=== PATIENT | female | born 1950 | race Caucasian/White ===

== ENCOUNTER 2019-12-31 13:32 | Outpatient (CLI) | payer OTHER, MEDICARE ==
--- NOTE | 2019-12-31 14:48 | MMO ---
Bilateral MAMMO Bilat Screen [facility]. CLINICAL HISTORY: Patient is 69 years old and is seen for screening. The patient has the following family history of breast cancer: daughter, at age 37. The patient has no personal history of cancer. VIEWS: The views performed were: bilateral craniocaudal with tomosynthesis and bilateral mediolateral oblique with tomosynthesis. FILMS COMPARED: The present examination has been compared to prior imaging studies performed at [facility] on 12/01/2013 and 12/08/2017, and at [facility] on 03/14/2010 and 08/14/2011. This study has been interpreted with the assistance of computer-aided detection. MAMMOGRAM FINDINGS: There are scattered fibroglandular densities. A nodule is seen in the right mid breast. In the left breast, there are no suspicious masses, calcifications or areas of architectural distortion. IMPRESSION: FINDING IN THE RIGHT BREAST REQUIRES ADDITIONAL EVALUATION. SPOT COMPRESSION IS RECOMMENDED. AN ULTRASOUND EXAM IS RECOMMENDED. ADDITIONAL IMAGING. THE RESULTS OF THIS EXAM WERE SENT TO THE PATIENT. ACR BI-RADS Category 0 - Incomplete: Need additional imaging evaluation. [facility] will notify the patient of the need for additional imaging services. MAMMOGRAPHY NOTE: 1. A negative mammogram report should not delay a biopsy if a dominant of clinically suspicious mass is present. 2. Approximately 10% to 15% of breast cancers are not detected by mammography. 3. Adenosis and dense breasts may obscure an underlying neoplasm. Reported by: KEVIN WALTON MD Electonically Signed: [id number]
== END 2019-12-31 13:33 | disposition home or self-care (01) ==
LOC: BICMAMMO 13:32
PROVIDERS: ATTEND Family Medicine
DX: Z12.31 Encounter for screening mammogram for malignant neoplasm of breast (principal); Z80.3 Family history of malignant neoplasm of breast
CPT/HCPCS: 77063; 77067

== ENCOUNTER 2020-01-04 14:54 | Outpatient (CLI) | payer OTHER, MEDICARE ==
--- NOTE | 2020-01-04 15:55 | MMO ---
Right Breast MAMMO Unilat Diag [facility]DI RT+CORTEZ. CLINICAL HISTORY: Patient is 69 years old and is seen for additional evaluation requested from prior study. The patient has the following family history of breast cancer: daughter, at age 37. The patient has no personal history of cancer. VIEWS: The views performed were: right craniocaudal spot compression with tomosynthesis; right mediolateral oblique spot compression with tomosynthesis; and right mediolateral with tomosynthesis. FILMS COMPARED: The present examination has been compared to prior imaging studies performed at [facility] on 12/01/2013, 12/08/2017, 12/31/2019 and 01/04/2020. This study has been interpreted with the assistance of computer-aided detection. MAMMOGRAM FINDINGS: There are scattered fibroglandular densities. Additional views were performed. Tiny nodule persisis and is a 5mm cyst on US There are no suspicious masses, suspicious calcifications, or new areas of architectural distortion. IMPRESSION: THERE IS NO MAMMOGRAPHIC EVIDENCE OF MALIGNANCY. A ROUTINE FOLLOW-UP MAMMOGRAM IN 1 YEAR IS RECOMMENDED. THE RESULTS OF THIS EXAM WERE SENT TO THE PATIENT. ACR BI-RADS Category 2 - Benign finding MAMMOGRAPHY NOTE: 1. A negative mammogram report should not delay a biopsy if a dominant of clinically suspicious mass is present. 2. Approximately 10% to 15% of breast cancers are not detected by mammography. 3. Adenosis and dense breasts may obscure an underlying neoplasm. Reported by: KEVIN WALTON MD Electonically Signed: [id number]
--- NOTE | 2020-01-04 16:00 | ULT ---
LEFT BREAST ULTRASOUND: 01/04/20 HISTORY: Abnormal mammogram of 12/31/19. FINDINGS: Correlation is made with the mammograms of 12/31/19 and today. There is a 5 mm cyst at the 7 o'clock position of the right breast corresponding to the mammographic finding. Incidental note is also made of a 1 cm nonshadowing hypoechoic nodule with hyperechoic hilum consiste nt with intramammary lymph node at the 10 o'clock position of the right breast. IMPRESSION: BIRADS 2: Benign Finding(s) Routine annual screening mammography (for women over age 40).
== END 2020-01-04 14:55 | disposition home or self-care (01) ==
LOC: BICMAMMO 14:54
PROVIDERS: ATTEND Family Medicine
DX: N63.13 Unspecified lump in the right breast, lower outer quadrant (principal)
CPT/HCPCS: G0279

== ENCOUNTER 2020-04-03 16:31 | Inpatient (IN) | payer OTHER, MEDICARE ==
[2020-04-03 17:30] LABS: #Eosinphils 0.1 thou/uL (0.0-0.7); #Lymphocytes 1.3 thou/uL (1.20-3.40); #Monocytes 0.7 thou/uL (0.11-0.59); #Neutrophils 9.4 thou/uL (1.40-6.50); %Basophils 0.1 % (0.0-1.0); %Eosinophils 0.4 % (0.0-10.0); %Lymphocytes 11.5 % (21.0-51.0); %Monocytes 6.4 % (0.0-10.0); %Neutrophils 81.6 % (42.0-75.0); Hemoglobin 13.2 g/dL (12.0-16.0); Mean Corpuscular Hemoglobin 30.8 pg (27.0-31.0); Mean Corpuscular Volume 87.9 fL (78.0-98.0); Mean Platelet Volume 7.3 fL (7.4-10.4); Platelet Count 269 thou/uL (130-400); RBC Distribution Width 11.2 % (11.5-14.5); Red Blood Cell (RBC) Count 4.29 mill/uL (4.20-5.40); White Blood Cell (WBC) Count 11.5 thou/uL (4.8-10.8)
[2020-04-03] MEDS ORDERED: Dexamethasone 10 MG/ML VIAL ONE (17:30)
[2020-04-03] MEDS ORDERED: Albuterol 200 PUFF (6.7GM INHALER) ONE (17:30)
[2020-04-03] MEDS ORDERED: Ketorolac Tromethamine 30 MG/ML VIAL ONE (17:30)
[2020-04-03] MEDS ORDERED: Acetaminophen 325 MG TAB ONE (17:30)
[2020-04-03] MEDS ORDERED: Ondansetron PF 4 MG/2 ML Vial ONE (17:30)
--- NOTE | 2020-04-03 17:54 | RAD ---
PORTABLE CHEST: History: Dyspnea. Shortness of breath. Patient's is Covid positive, patient has tested negati ve. Comparison: None FINDINGS: Heart size is within normal limits. Patchy mainly peripheral lung changes are very suspicious for a C ovid pneumonia. There are chronic lung changes. I would doubt that all of these changes are chronic i n nature. IMPRESSION: Patchy multifocal infiltrate very suspicious for Covid pneumonia. POS: OFF
[2020-04-03 17:56] LABS: ALT (SGPT) 28 U/L (8-55); AST (SGOT) 29 U/L (5-34); Albumin 3.4 g/dL (3.4-4.8); Alkaline Phosphatase 119 U/L (40-110); Anion Gap 14 mmol/L (10-20); BUN (Urea Nitrogen) 14 mg/dL (9.8-20.1); Bilirubin, Total 0.6 mg/dL (0.2-1.2); Calc. Creatinine Clearance 0 mL/min (70-130); Calcium 9.3 mg/dL (7.8-10.44); Carbon Dioxide 23 mmol/L (23-31); Chloride 104 mmol/L (98-107); Estimated GFR-MDRD 70; Globulin 3.7 g/dL (2.4-3.5); Glucose 106 mg/dL (80-115); Protein, Total 7.1 g/dL (6.0-8.3); Sodium 137 mmol/L (136-145)
[2020-04-03] MEDS ORDERED: cefTRIAXone\\ROCEPHIN 2 GM VIAL ONE (19:06)
[2020-04-03] MEDS ORDERED: Azithromycin 250 MG TAB ONE (19:06)
[2020-04-03] MEDS ORDERED: Sodium Chloride 0.9% 1,000 ML IV SCH (20:15)
[2020-04-03] MEDS ORDERED: Acetaminophen 325 MG TAB PO PRN (20:15)
--- NOTE | 2020-04-03 20:22 | PDOC.HHP ---
Hospitalist HPI - History of Present Illness Shortness of breath History of Present Illness: 69-year-old woman with a history of hypertension presented to the emergency department with a complaint of general malaise, shortness of breath and nonproductive cough of 2 days duration. Patient reports rapid progression of her symptoms over the period of 2 days. She states she felt hot, but she was afebrile in the ED. Per report her tested positive for COVID. Her chest x-ray in the ED report patchy multifocal infiltrates suggestive of COVID pneumonia. She apparently tested negative for COVID yesterday. Rapid COVID test has been obtained in the ED. patient symptoms suggest COVID pneumonia. Ox ygen saturations 90% on room air but she was tachypneic and complaining of shortness of breath. Her systolic blood pressure is borderline low at 88. She has no leukocytosis but she is tachycardic and meet criteria for sepsis. Patient reports history of low immunity but does not know the specific diagnosis. I am not able to find any record of that in the chart. patient is admitted for further management. Hospitalist ROS - Review of Systems Other: Except as documented, all other systems reviewed and negative. - Medication Medications: Medication Instructions Recorded Confirmed Type Amlodipine Besylate [amLODIPine 5 mg PO DAILY 04/03/20 04/03/20 History Besylate] Aspirin [Quang Chewable Aspirin] 81 mg PO QAM 04/03/20 04/03/20 History Calcium Carbonate [Calcium] 600 mg PO DAILY-AC 04/03/20 04/03/20 History Cholecalciferol (Vitamin D3) 125 mcg PO QAM 04/03/20 04/03/20 History [Vitamin D3] Hydrochlorothiazide 25 mg PO QAM 04/03/20 04/03/20 History [place]-3 Fatty Acids/Fish Oil [Fish 1 cap PO DAILY 04/03/20 04/03/20 History Oil 1,000 mg Capsule] Vit A/Vit C/Vit E/Zinc/Copper 2 tablet PO BID 04/03/20 04/03/20 History [PreserVision AREDS] Zinc 50 mg PO QAM 04/03/20 04/03/20 History - Exam General - other findings: Mild distress Eye: PERRL, anicteric sclera ENT: normocephalic atraumatic, no oropharyngeal lesions, moist mucosa Neck: supple, symmetric, no JVD Heart: no murmur, no rubs, normal peripheral pulses Respiratory: no wheezes, rales (Mild bibasilar Rales.) Gastrointestinal: soft, non-tender, non-distended Extremities: no cyanosis, no clubbing, no edema Skin: normal turgor, no lesions, no rashes Neurological: cranial nerve grossly intact, no weakness, no focal deficits Musculoskeletal: normal strength Psychiatric: normal affect, normal behavior, A&O x 3 Hospitalist Results - Labs Result Diagrams: 04/04/20 05:52 04/04/20 05:52 Lab results: WBC 11.5 thou/uL (4.8-10.8) H 04/03/20 17:20 Hgb 13.2 g/dL (12.0-16.0) 04/03/20 17:20 Hct 37.8 % (36.0-47.0) 04/03/20 17:20 MCV 87.9 fL (78.0-98.0) 04/03/20 17:20 Plt Count 269 thou/uL (130-400) 04/03/20 17:20 Neutrophils % 81.6 % (42.0-75.0) H 04/03/20 17:20 Sodium 137 mmol/L (136-145) 04/03/20 17:20 Potassium 4.0 mmol/L (3.5-5.1) 04/03/20 17:20 Chloride 104 mmol/L (98-107) 04/03/20 17:20 Carbon Dioxide 23 mmol/L (23-31) 04/03/20 17:20 BUN 14 mg/dL (9.8-20.1) 04/03/20 17:20 Creatinine 0.82 mg/dL (0.6-1.1) 04/03/20 17:20 Glucose 106 mg/dL (80-115) 04/03/20 17:20 Calcium 9.3 mg/dL (7.8-10.44) 04/03/20 17:20 Total Bilirubin 0.6 mg/dL (0.2-1.2) 04/03/20 17:20 AST 29 U/L (5-34) 04/03/20 17:20 ALT 28 U/L (8-55) 04/03/20 17:20 Alkaline Phosphatase 119 U/L (40-110) H 04/03/20 17:20 Troponin I Less than 0.010 ng/mL (< 0.028) 04/03/20 17:20 Serum Total Protein 7.1 g/dL (6.0-8.3) 04/03/20 17:20 Albumin 3.4 g/dL (3.4-4.8) 04/03/20 17:20 - Radiology Interpretation Chest x-ray Status: report reviewed by me (Patchy multifocal infiltrates suggestive of COVID pneumonia.) Hospitalist H&P A/P - Problem (1) Atypical pneumonia Code(s): J18.9 - PNEUMONIA, UNSPECIFIED ORGANISM Status: Acute (2) COVID-19 ruled out Code(s): Z03.818 - ENCNTR FOR OBS FOR SUSP EXPSR TO OTH BIOLG AGENTS RULED OUT Status: Acute (3) Hypotension Status: Acute (4) Sepsis Code(s): A41.9 - SEPSIS, UNSPECIFIED ORGANISM Status: Acute - Plan Plan: Admitted to the medical floor. Hydrate with IV normal saline given borderline low blood pressure. Rapid COVID-19 test is pending. Given exposure to COVID-19 and chest x-ray findings will treat for COVID pneumonia with dexamethasone, vitamin D, zinc and ascorbic acid. Supplemental oxygen as needed. We will also cover with broad-spectrum antibiotics given patient subjective report of low immunity. Supportive measures-antipyretics, inhalers as needed. Monitor CBC and BMP. Hold home antihypertensives.
--- NOTE | 2020-04-03 20:46 | PDOC.FMACP ---
Advance Care Planning - Problem (1) Atypical pneumonia Status: Acute Code(s): J18.9 - PNEUMONIA, UNSPECIFIED ORGANISM (2) COVID-19 ruled out Status: Acute Code(s): Z03.818 - ENCNTR FOR OBS FOR SUSP EXPSR TO OTH BIOLG AGENTS RULED OUT (3) Hypotension Status: Acute (4) Sepsis Status: Acute Code(s): A41.9 - SEPSIS, UNSPECIFIED ORGANISM - Note Summary: Advanced Care Planning was discussed. The diagnosis, prognosis and goals of care were discussed. Appropriate forms and documentation to accomplish the goals of care were discussed. All questions were answered. The Palliative Care Team will be engaged to assist with completion of any outstanding forms that are needed. Patient wishes to be full code. She has no advanced directive written down. Surrogate decision maker is her -Sarbjit Bergman. Time Spent (mins): 16
[2020-04-03 21:59] VITALS: BMI 29.3
[2020-04-03] MEDS: Cholecalciferol 1,000 UNITS (25 MCG) TAB PO SCH (22:28)
[2020-04-04 06:12] LABS: #Lymphocytes 0.9 thou/uL (1.20-3.40); #Monocytes 0.2 thou/uL (0.11-0.59); #Neutrophils 6.9 thou/uL (1.40-6.50); %Basophils 0.1 % (0.0-1.0); %Eosinophils 0.1 % (0.0-10.0); %Lymphocytes 10.9 % (21.0-51.0); %Monocytes 2.6 % (0.0-10.0); %Neutrophils 86.3 % (42.0-75.0); Hemoglobin 11.9 g/dL (12.0-16.0); Mean Corpuscular HGB CONC 33.3 g/dL (32.0-36.0); Mean Corpuscular Hemoglobin 29.5 pg (27.0-31.0); Mean Corpuscular Volume 88.5 fL (78.0-98.0); Mean Platelet Volume 7.3 fL (7.4-10.4); Platelet Count 280 thou/uL (130-400); RBC Distribution Width 11.1 % (11.5-14.5); Red Blood Cell (RBC) Count 4.05 mill/uL (4.20-5.40)
[2020-04-04 06:52] LABS: Anion Gap 12 mmol/L (10-20); BUN (Urea Nitrogen) 16 mg/dL (9.8-20.1); Calc. Creatinine Clearance 99 mL/min (70-130); Carbon Dioxide 23 mmol/L (23-31); Chloride 109 mmol/L (98-107); Estimated GFR-MDRD 78; Glucose 142 mg/dL (80-115); Potassium 4.1 mmol/L (3.5-5.1); Sodium 140 mmol/L (136-145)
[2020-04-04] MEDS: Ondansetron PF 4 MG/2 ML Vial IVP PRN ×2 (08:00→16:35)
[2020-04-04] MEDS ORDERED: Dexamethasone 0.5 MG/5 ML UDCUP PO SCH (08:00)
[2020-04-04] MEDS: Dexamethasone 4 MG TAB PO SCH (08:01)
[2020-04-04] MEDS: Ascorbic Acid 500 mg Chewable Tablet PO SCH (08:02)
[2020-04-04] MEDS ORDERED: Enoxaparin Sodium 40 MG/0.4 ML SYRINGE SC SCH (09:00)
[2020-04-04] MEDS: Aspirin Chewable 81 MG TAB PO SCH (09:33)
[2020-04-04] MEDS: Zinc Sulfate 220 MG CAP PO SCH (09:33)
[2020-04-04 11:54] LABS: SARS-CoV-2 MS2 Positive; SARS-CoV-2 N Gene Positive; SARS-CoV-2 S Gene Positive; SARS-CoV-2 by NAA DETECTED (NotDetected); SARS-CoV-2 orf1ab Positive
[2020-04-04] MEDS: Sodium Chloride 0.9% 1,000 ML IV SCH ×2 (14:59→16:36)
--- NOTE | 2020-04-04 16:22 | PDOC.HOSPP ---
- Subjective Encounter Date: 04/04/20 Subjective: Reports subjective fever although we don't seem to catch them. Generalized malaise. SOB when getting out of bed. Several episodes of diarrhea. - Objective Vital Signs & Weight: Vital Signs (12 hours) Temp Pulse Resp BP BP Pulse Ox 04/04/20 15:33 88 L 04/04/20 15:32 97.9 F 71 18 90/57 L 97 04/04/20 11:20 98 F 74 18 97/62 100 04/04/20 08:20 98.3 F 77 18 108/72 99 04/04/20 08:00 99 04/04/20 04:42 98.7 F 72 17 100/67 100 Weight Weight 187 lb 9.6 oz Result Diagrams: 04/04/20 05:52 04/04/20 05:52 Hospitalist ROS - Medication Medications: Active Medications Generic Name Dose Route Start Last Admin Trade Name Freq PRN Reason Stop Dose Admin Ascorbic Acid 1,000 mg 04/04/20 09:00 04/04/20 08:02 Ascorbic Acid 500 Mg Chewable Tablet PO 1,000 mg DAILY IDANIA Administration Aspirin 81 mg 04/04/20 09:00 04/04/20 09:33 Aspirin Chewable 81 Mg Tab PO 81 mg QAM IDANIA Administration Cholecalciferol 2,000 units 04/03/20 21:00 04/03/20 22:28 Cholecalciferol 1,000 Units (25 Mcg) Tab PO 2,000 units HS IDANIA Administration Dexamethasone 6 mg 04/04/20 08:00 04/04/20 08:01 Dexamethasone 4 Mg Tab PO 6 mg QAM-WM IDANIA Administration Sodium Chloride 1,000 mls @ 75 mls/hr 04/04/20 14:30 04/04/20 14:59 Normal Saline 0.9% IV 1,000 mls .[id number] IDANIA Administration Ondansetron HCl 4 mg 04/04/20 07:25 04/04/20 08:00 Ondansetron Pf 4 Mg/2 Ml Vial IVP 4 mg Q8H PRN Administration Nausea/Vomiting Sodium Chloride 10 ml 04/04/20 09:00 04/04/20 08:04 Flush - Normal Saline 10 Ml Syringe IVF 10 ml Q12HR IDANIA Administration Zinc Sulfate 220 mg 04/04/20 09:00 10/13/20 09:33 Zinc Sulfate 220 Mg Cap PO 220 mg DAILY IDANIA Administration - Exam General Appearance: NAD, awake alert Heart: RRR, no murmur, no gallops, no rubs, normal peripheral pulses Respiratory: rales (modest, scattered) Gastrointestinal: soft, non-tender, non-distended, normal bowel sounds, no palpable masses, no hepatomegaly, no splenomegaly, no bruit Extremities: no cyanosis, no clubbing, no edema Skin: normal turgor Neurological: cranial nerve grossly intact, normal sensation to touch, no weakness, no focal deficits, no new deficit Musculoskeletal: normal tone, normal strength, no muscle wasting Psychiatric: normal affect, normal behavior, A&O x 3 Hosp A/P (1) Acute respiratory failure with hypoxia Code(s): J96.01 - ACUTE RESPIRATORY FAILURE WITH HYPOXIA Status: Acute (2) COVID-19 virus infection Code(s): U07.1 - COVID-19 Status: Acute (3) Hypotension Status: Acute - Plan Acute hypoxic respiratory failure: Documented sats at 88%. Continue supplemental oxygen. Covid 19: Continue with the Dexamethasone. Starting Remdesivir. Continue ancillary meds. DC Rocephin/Azithromycin. Increase the Lovenox to BID. Follow markers. Hypotension: May be hypovolemic from the diarrhea. IV fluid bolus. IV maintenance fluids. BP is low normal, but she typically has hypertension.
[2020-04-04] MEDS ORDERED: Sodium Chloride 0.9% 500 ML IV SCH (16:30)
[2020-04-04] MEDS ORDERED: cefTRIAXone\\ROCEPHIN 1 GM in Sodium Chloride 0.9% 100 ML IVPB SCH (18:00)
[2020-04-04] MEDS ORDERED: Azithromycin 500 MG in Sodium Chloride 0.9% 250 ML 250 ML IVPB SCH (20:00)
[2020-04-04] MEDS ORDERED: REMDESIVIR (EUA) 200 MG in Sodium Chloride 0.9% 250 ML 210 ML IV SCH (21:00)
[2020-04-04] MEDS: Cholecalciferol 1,000 UNITS (25 MCG) TAB PO SCH (21:12)
[2020-04-04] MEDS: Enoxaparin Sodium 40 MG/0.4 ML SYRINGE SC SCH (21:13)
[2020-04-05] MEDS: Sodium Chloride 0.9% 1,000 ML IV SCH ×3 (05:06→17:04)
[2020-04-05] MEDS: Ondansetron PF 4 MG/2 ML Vial IVP PRN (06:12)
[2020-04-05] MEDS: Dexamethasone 4 MG TAB PO SCH (08:18)
[2020-04-05] MEDS: Ascorbic Acid 500 mg Chewable Tablet PO SCH (08:18)
[2020-04-05] MEDS: Aspirin Chewable 81 MG TAB PO SCH (08:19)
[2020-04-05] MEDS: Enoxaparin Sodium 40 MG/0.4 ML SYRINGE SC SCH ×2 (08:19→20:17)
[2020-04-05] MEDS: Zinc Sulfate 220 MG CAP PO SCH (08:19)
[2020-04-05 14:28] LABS: ALT (SGPT) 32 U/L (8-55); AST (SGOT) 28 U/L (5-34); Albumin 3.2 g/dL (3.4-4.8); Alkaline Phosphatase 106 U/L (40-110); Bilirubin, Direct 0.1 mg/dL (0.1-0.3); Bilirubin, Total 0.3 mg/dL (0.2-1.2); Protein, Total 6.4 g/dL (6.0-8.3)
--- NOTE | 2020-04-05 16:38 | PDOC.HOSPP ---
- Subjective Encounter Date: 04/05/20 Encounter Time: 16:20 Subjective: f/u for COVID-19 PNA on Remdesivir/Lovenox/Dexamethasone. Feels better overall. Had some upper lip swelling earlier but no blistering, tongue swelling, rash or increased SOB. - Objective Vital Signs & Weight: Vital Signs (12 hours) Temp Pulse Resp BP Pulse Ox 04/05/20 15:20 98.1 F 81 18 111/73 95 04/05/20 11:05 98.1 F 70 18 109/73 98 04/05/20 08:00 95 04/05/20 07:32 98.4 F 62 18 98/66 95 Weight Weight 187 lb 9.6 oz I&O: 04/04/20 04/05/20 04/06/20 06:59 06:59 06:59 Intake Total 1720 Balance 1720 Result Diagrams: 04/04/20 05:52 04/04/20 05:52 Additional Labs: Laboratory Tests 04/03/20 04/04/20 04/04/20 17:55 14:40 14:40 D-Dimer Ferritin 385.87 H C-Reactive Protein 15.62 H SARS-CoV-2 (PCR) DETECTED A* 04/04/20 14:40 D-Dimer 1.04 H Ferritin C-Reactive Protein SARS-CoV-2 (PCR) Radiology Reviewed by me: Yes (PCXR - multifocal patchy infiltrates) Hospitalist ROS - Medication Medications: Active Medications Generic Name Dose Route Start Last Admin Trade Name Freq PRN Reason Stop Dose Admin Ascorbic Acid 1,000 mg 04/04/20 09:00 04/05/20 08:18 Ascorbic Acid 500 Mg Chewable Tablet PO 1,000 mg DAILY IDANIA Administration Aspirin 81 mg 04/04/20 09:00 04/05/20 08:19 Aspirin Chewable 81 Mg Tab PO 81 mg QAM IDANIA Administration Cholecalciferol 2,000 units 04/03/20 21:00 04/04/20 21:12 Cholecalciferol 1,000 Units (25 Mcg) Tab PO 2,000 units HS IDANIA Administration Dexamethasone 6 mg 04/04/20 08:00 04/05/20 08:18 Dexamethasone 4 Mg Tab PO 6 mg QAM-WM IDANIA Administration Enoxaparin Sodium 40 mg 04/04/20 21:00 04/05/20 08:19 Enoxaparin Sodium 40 Mg/0.4 Ml Syringe SC 40 mg 0900,2100 IDANIA Administration Sodium Chloride 1,000 mls @ 75 mls/hr 04/04/20 14:30 04/05/20 05:06 Normal Saline 0.9% IV 1,000 mls .[id number] IDANIA Administration Ondansetron HCl 4 mg 04/04/20 07:25 04/05/20 06:12 Ondansetron Pf 4 Mg/2 Ml Vial IVP 4 mg Q8H PRN Administration Nausea/Vomiting Sodium Chloride 10 ml 04/04/20 09:00 04/05/20 08:19 Flush - Normal Saline 10 Ml Syringe IVF 10 ml Q12HR IDANIA Administration Zinc Sulfate 220 mg 04/04/20 09:00 04/05/20 08:19 Zinc Sulfate 220 Mg Cap PO 220 mg DAILY IDANIA Administration - Exam General Appearance: NAD, awake alert Eye: PERRL, anicteric sclera ENT: normocephalic atraumatic ENT - other findings: mild upper lip edema, no erythema, pustules or kike edema Neck: supple, symmetric, no JVD, no thyromegaly, no lymphadenopathy, no carotid bruit Heart: RRR, no gallops, no rubs, normal peripheral pulses Heart - other findings: S1, S2 Respiratory: normal chest expansion, wheezes Respiratory - other findings: few scattered rhonchi Gastrointestinal: soft, non-tender, non-distended, normal bowel sounds, no palpable masses Extremities: no cyanosis, no clubbing, no edema Skin: normal turgor, no lesions Neurological: cranial nerve grossly intact, no new deficit Musculoskeletal: normal tone, normal strength, no muscle wasting Psychiatric: normal affect, A&O x 3 Hosp A/P (1) Pneumonia due to COVID-19 virus Code(s): U07.1 - COVID-19; J12.89 - OTHER VIRAL PNEUMONIA Status: Acute Plan: Continue Remdesivir/Lovenox/Dexamethasone, resp isolation protocol (2) Acute respiratory failure with hypoxia Code(s): J96.01 - ACUTE RESPIRATORY FAILURE WITH HYPOXIA Status: Acute Plan: Wean off O2 as clinically tolerated (3) Hypotension Status: Acute Plan: Transient, resolving, continue IVF's, hold BP meds (4) HTN (hypertension) Code(s): I10 - ESSENTIAL (PRIMARY) HYPERTENSION Status: Chronic Qualifiers: Hypertension type: essential hypertension Qualified Code(s): I10 - Essential (primary) hypertension Plan: Serial BP monitoring, may resume home BP regimen if BP stabilizes in next 24h - Plan respiratory therapy, out of bed/ambulate, DVT proph w/SCDs Continue Remdesivir Continue Dexamethasone O2 as clinically indicated OOB/ambulate Continue Lovenox 40mg sc BID Continue IVF's
[2020-04-05] MEDS: Cholecalciferol 1,000 UNITS (25 MCG) TAB PO SCH (20:18)
[2020-04-05] MEDS: REMDESIVIR (EUA) 100 MG in Sodium Chloride 0.9% 250 ML 230 ML IV SCH (21:58)
[2020-04-06] MEDS: Ondansetron PF 4 MG/2 ML Vial IVP PRN (03:39)
[2020-04-06] MEDS: Sodium Chloride 0.9% 1,000 ML IV SCH ×2 (07:53→08:59)
[2020-04-06 08:18] LABS: ALT (SGPT) 30 U/L (8-55); AST (SGOT) 18 U/L (5-34); Alkaline Phosphatase 94 U/L (40-110); Bilirubin, Direct 0.1 mg/dL (0.1-0.3); Bilirubin, Total 0.3 mg/dL (0.2-1.2)
[2020-04-06] MEDS: Aspirin Chewable 81 MG TAB PO SCH (08:58)
[2020-04-06] MEDS: Ascorbic Acid 500 mg Chewable Tablet PO SCH (08:58)
[2020-04-06] MEDS: Dexamethasone 4 MG TAB PO SCH (08:58)
[2020-04-06] MEDS: Enoxaparin Sodium 40 MG/0.4 ML SYRINGE SC SCH ×2 (08:58→20:06)
[2020-04-06] MEDS: Zinc Sulfate 220 MG CAP PO SCH (09:03)
--- NOTE | 2020-04-06 16:17 | PDOC.HOSPP ---
- Subjective Encounter Date: 04/06/20 Encounter Time: 16:05 Subjective: f/u for COVID-19 PNA on Dexamethasone/Lovenox/Remdesivir. Feels much better overall. No fever or chills. - Objective Vital Signs & Weight: Vital Signs (12 hours) Temp Pulse Resp BP Pulse Ox 04/06/20 12:40 98 F 71 14 113/75 99 04/06/20 09:10 98.5 F 64 16 104/63 95 04/06/20 09:00 95 Weight Weight 187 lb 9.6 oz I&O: 04/05/20 04/06/20 04/07/20 06:59 06:59 06:59 Intake Total 1720 2800 640 Balance 1720 2800 640 Result Diagrams: 04/04/20 05:52 04/04/20 05:52 Additional Labs: Laboratory Tests 04/03/20 04/04/20 04/04/20 17:55 14:40 14:40 D-Dimer Ferritin 385.87 H C-Reactive Protein 15.62 H SARS-CoV-2 (PCR) DETECTED A* 04/04/20 14:40 D-Dimer 1.04 H Ferritin C-Reactive Protein SARS-CoV-2 (PCR) Hospitalist ROS - Medication Medications: Active Medications Generic Name Dose Route Start Last Admin Trade Name Freq PRN Reason Stop Dose Admin Ascorbic Acid 1,000 mg 04/04/20 09:00 04/06/20 08:58 Ascorbic Acid 500 Mg Chewable Tablet PO 1,000 mg DAILY IDANIA Administration Aspirin 81 mg 04/04/20 09:00 04/06/20 08:58 Aspirin Chewable 81 Mg Tab PO 81 mg QAM IDANIA Administration Cholecalciferol 2,000 units 04/03/20 21:00 04/05/20 20:18 Cholecalciferol 1,000 Units (25 Mcg) Tab PO 2,000 units HS IDANIA Administration Dexamethasone 6 mg 04/04/20 08:00 04/06/20 08:58 Dexamethasone 4 Mg Tab PO 6 mg QAM-WM IDANIA Administration Enoxaparin Sodium 40 mg 04/04/20 21:00 04/06/20 08:58 Enoxaparin Sodium 40 Mg/0.4 Ml Syringe SC 40 mg 0900,2100 IDANIA Administration Sodium Chloride 1,000 mls @ 75 mls/hr 04/04/20 14:30 04/06/20 08:59 Normal Saline 0.9% IV 1,000 mls .[id number] IDANIA Administration Remdesivir 100 mg/ Sodium 250 mls @ 250 mls/hr 04/05/20 21:00 04/05/20 21:58 Chloride IV 04/08/20 21:59 250 mls 2100 IDANIA Administration Ondansetron HCl 4 mg 04/04/20 07:25 04/06/20 03:39 Ondansetron Pf 4 Mg/2 Ml Vial IVP 4 mg Q8H PRN Administration Nausea/Vomiting Sodium Chloride 10 ml 04/04/20 09:00 04/06/20 08:58 Flush - Normal Saline 10 Ml Syringe IVF 10 ml Q12HR IDANIA Administration Zinc Sulfate 220 mg 04/04/20 09:00 04/06/20 09:03 Zinc Sulfate 220 Mg Cap PO 220 mg DAILY IDANIA Administration - Exam General Appearance: NAD, awake alert Eye: PERRL, anicteric sclera ENT: normocephalic atraumatic, no oropharyngeal lesions Neck: supple, symmetric, no JVD, no thyromegaly, no lymphadenopathy Heart: RRR, no murmur, no gallops, no rubs, normal peripheral pulses Heart - other findings: S1, S2 Respiratory: CTAB, no wheezes, no rales, no ronchi, normal chest expansion Gastrointestinal: soft, non-tender, non-distended, normal bowel sounds, no palpable masses Extremities: no cyanosis, no clubbing, no edema Skin: normal turgor, no lesions Neurological: cranial nerve grossly intact, no new deficit Musculoskeletal: normal tone, normal strength, no muscle wasting Psychiatric: normal affect, A&O x 3 Hosp A/P (1) Pneumonia due to COVID-19 virus Code(s): U07.1 - COVID-19; J12.89 - OTHER VIRAL PNEUMONIA Status: Acute Plan: Continue Remdesivir/Dexamethasone/Lovenox, O2 support PRN (2) Acute respiratory failure with hypoxia Code(s): J96.01 - ACUTE RESPIRATORY FAILURE WITH HYPOXIA Status: Acute Plan: Wean off O2 as clinically indicated (3) Hypotension Status: Acute (4) HTN (hypertension) Code(s): I10 - ESSENTIAL (PRIMARY) HYPERTENSION Status: Chronic Qualifiers: Hypertension type: essential hypertension Qualified Code(s): I10 - Essential (primary) hypertension - Plan PT/OT, psychotherapist social worker, respiratory therapy, out of bed/ambulate, DVT proph w/SCDs Continue Remdesivir Continue Dexamethasone O2 as clinically indicated OOB/ambulate Continue Lovenox 40mg sc BID Saline lock IVF's AM lab: LFT's
[2020-04-06] MEDS: Cholecalciferol 1,000 UNITS (25 MCG) TAB PO SCH (20:05)
[2020-04-06] MEDS: REMDESIVIR (EUA) 100 MG in Sodium Chloride 0.9% 250 ML 230 ML IV SCH (21:25)
[2020-04-07 06:19] LABS: ALT (SGPT) 28 U/L (8-55); AST (SGOT) 19 U/L (5-34); Albumin 2.8 g/dL (3.4-4.8); Alkaline Phosphatase 88 U/L (40-110); Bilirubin, Direct 0.2 mg/dL (0.1-0.3); Bilirubin, Total 0.2 mg/dL (0.2-1.2); Protein, Total 5.5 g/dL (6.0-8.3)
[2020-04-07] MEDS: Ascorbic Acid 500 mg Chewable Tablet PO SCH (09:04)
[2020-04-07] MEDS: Dexamethasone 4 MG TAB PO SCH (09:04)
[2020-04-07] MEDS: Aspirin Chewable 81 MG TAB PO SCH (09:05)
[2020-04-07] MEDS: Zinc Sulfate 220 MG CAP PO SCH (09:06)
[2020-04-07] MEDS: Enoxaparin Sodium 40 MG/0.4 ML SYRINGE SC SCH ×2 (09:06→20:03)
--- NOTE | 2020-04-07 18:21 | PDOC.HOSPP ---
- Subjective Encounter Date: 04/07/20 Encounter Time: 12:00 Subjective: Patient seen for follow-up regarding COVID-19 pneumonia. Denies any complaints. - Objective Vital Signs & Weight: Vital Signs (12 hours) Temp Pulse Resp BP Pulse Ox 04/07/20 16:00 97.7 F 64 16 98 04/07/20 12:00 98.9 F 64 18 112/68 97 04/07/20 08:00 98.3 F 74 18 94 L Weight Weight 187 lb 9.6 oz I&O: 04/06/20 04/07/20 04/08/20 06:59 06:59 06:59 Intake Total 2800 2040 Balance 2800 2040 Result Diagrams: 04/04/20 05:52 04/04/20 05:52 Additional Labs: I reviewed patient's labs and [facility] Hospitalist ROS - Review of Systems Respiratory: denies: cough, dry, shortness of breath, hemoptysis, SOB with excertion, pleuritic pain, sputum, wheezing Gastrointestinal: denies: nausea, vomiting, abdominal pain, diarrhea, constipation, melena, hematochezia - Medication Medications: Active Medications Generic Name Dose Route Start Last Admin Trade Name Freq PRN Reason Stop Dose Admin Ascorbic Acid 1,000 mg 04/04/20 09:00 04/07/20 09:04 Ascorbic Acid 500 Mg Chewable Tablet PO 1,000 mg DAILY IDANIA Administration Aspirin 81 mg 04/04/20 09:00 04/07/20 09:05 Aspirin Chewable 81 Mg Tab PO 81 mg QAM IDANIA Administration Cholecalciferol 2,000 units 04/03/20 21:00 04/06/20 20:05 Cholecalciferol 1,000 Units (25 Mcg) Tab PO 2,000 units HS IDANIA Administration Dexamethasone 6 mg 04/04/20 08:00 04/07/20 09:04 Dexamethasone 4 Mg Tab PO 6 mg QAM-WM IDANIA Administration Enoxaparin Sodium 40 mg 04/04/20 21:00 04/07/20 09:06 Enoxaparin Sodium 40 Mg/0.4 Ml Syringe SC 40 mg 0900,2100 IDANIA Administration Remdesivir 100 mg/ Sodium 250 mls @ 250 mls/hr 04/05/20 21:00 04/06/20 21:25 Chloride IV 04/08/20 21:59 250 mls 2100 IDANIA Administration Ondansetron HCl 4 mg 04/04/20 07:25 04/06/20 03:39 Ondansetron Pf 4 Mg/2 Ml Vial IVP 4 mg Q8H PRN Administration Nausea/Vomiting Sodium Chloride 10 ml 04/04/20 09:00 04/07/20 09:06 Flush - Normal Saline 10 Ml Syringe IVF 10 ml Q12HR IDANIA Administration Zinc Sulfate 220 mg 04/04/20 09:00 04/07/20 09:06 Zinc Sulfate 220 Mg Cap PO 220 mg DAILY IDANIA Administration - Exam General Appearance: awake alert Eye: anicteric sclera ENT: moist mucosa Neck: supple Heart: RRR Respiratory: CTAB Gastrointestinal: soft, non-tender Skin: no rashes Musculoskeletal: no muscle wasting Psychiatric: normal affect, normal behavior Hosp A/P - Plan -Assessment (1) Pneumonia due to COVID-19 virus Code(s): U07.1 - COVID-19; J12.89 - OTHER VIRAL PNEUMONIA Status: Acute Plan: Continue Remdesivir/Dexamethasone/Lovenox, O2 support PRN (2) Acute respiratory failure with hypoxia Code(s): J96.01 - ACUTE RESPIRATORY FAILURE WITH HYPOXIA Status: Acute (3) HTN (hypertension) Code(s): I10 - ESSENTIAL (PRIMARY) HYPERTENSION Status: Chronic Qualifiers: Hypertension type: essential hypertension Qualified Code(s): I10 - Essential (primary) hypertension - Plan Continue Remdesivir, Dexamethasone O2 as clinically indicated OOB/ambulate Continue Lovenox 40mg sc BID Likely home 24-48 hrs HTN controlled
[2020-04-07] MEDS: REMDESIVIR (EUA) 100 MG in Sodium Chloride 0.9% 250 ML 230 ML IV SCH (20:03)
[2020-04-07] MEDS: Cholecalciferol 1,000 UNITS (25 MCG) TAB PO SCH (20:03)
[2020-04-08 06:26] LABS: ALT (SGPT) 42 U/L (8-55); AST (SGOT) 39 U/L (5-34); Albumin 2.8 g/dL (3.4-4.8); Alkaline Phosphatase 86 U/L (40-110); Bilirubin, Direct 0.1 mg/dL (0.1-0.3); Bilirubin, Total 0.3 mg/dL (0.2-1.2); Protein, Total 5.9 g/dL (6.0-8.3)
[2020-04-08] MEDS: Ascorbic Acid 500 mg Chewable Tablet PO SCH (08:25)
[2020-04-08] MEDS: Dexamethasone 4 MG TAB PO SCH (08:25)
[2020-04-08] MEDS: Zinc Sulfate 220 MG CAP PO SCH (08:26)
[2020-04-08] MEDS: Enoxaparin Sodium 40 MG/0.4 ML SYRINGE SC SCH ×2 (08:26→20:46)
[2020-04-08] MEDS: Aspirin Chewable 81 MG TAB PO SCH (08:27)
--- NOTE | 2020-04-08 14:22 | PDOC.HOSPP ---
- Subjective Encounter Date: 04/08/20 Encounter Time: 13:00 Subjective: Patient seen in follow-up for pneumonia secondary to COVID-19 infection. Reports occasional cough. No new complaints. - Objective Vital Signs & Weight: Vital Signs (12 hours) Temp Pulse Resp BP Pulse Ox 04/08/20 08:00 98.3 F 67 18 132/67 95 04/08/20 04:00 98.2 F 61 18 121/77 95 Weight Weight 187 lb 9.6 oz I&O: 04/07/20 04/08/20 04/09/20 06:59 06:59 06:59 Intake Total 2039 600 Balance 2039 600 Result Diagrams: 04/04/20 05:52 04/04/20 05:52 Additional Labs: I reviewed patient's labs and MAR Hospitalist ROS - Review of Systems Respiratory: reports: cough, dry Gastrointestinal: denies: nausea, vomiting, abdominal pain, diarrhea, constipation, melena, hematochezia Genitourinary: denies: dysuria, frequency, incontinence, hematuria, retention - Medication Medications: Active Medications Generic Name Dose Route Start Last Admin Trade Name Freq PRN Reason Stop Dose Admin Acetaminophen 650 mg 04/03/20 20:15 04/08/20 08:33 Acetaminophen 325 Mg Tab PO 650 mg Q4H PRN Administration Headache/Fever/Mild Pain (1-3) Ascorbic Acid 1,000 mg 04/04/20 09:00 04/08/20 08:25 Ascorbic Acid 500 Mg Chewable Tablet PO 1,000 mg DAILY IDANIA Administration Aspirin 81 mg 04/04/20 09:00 04/08/20 08:27 Aspirin Chewable 81 Mg Tab PO 81 mg QAM IDANIA Administration Cholecalciferol 2,000 units 04/03/20 21:00 04/07/20 20:03 Cholecalciferol 1,000 Units (25 Mcg) Tab PO 2,000 units HS IDANIA Administration Dexamethasone 6 mg 04/04/20 08:00 04/08/20 08:25 Dexamethasone 4 Mg Tab PO 6 mg QAM-WM IDANIA Administration Enoxaparin Sodium 40 mg 04/04/20 21:00 04/08/20 08:26 Enoxaparin Sodium 40 Mg/0.4 Ml Syringe SC 40 mg 0900,2100 IDANIA Administration Remdesivir 100 mg/ Sodium 250 mls @ 250 mls/hr 04/05/20 21:00 04/07/20 20:03 Chloride IV 04/08/20 21:59 250 mls 2100 IDANIA Administration Ondansetron HCl 4 mg 04/04/20 07:25 04/06/20 03:39 Ondansetron Pf 4 Mg/2 Ml Vial IVP 4 mg Q8H PRN Administration Nausea/Vomiting Sodium Chloride 10 ml 04/04/20 09:00 04/08/20 08:27 Flush - Normal Saline 10 Ml Syringe IVF 10 ml Q12HR IDANIA Administration Zinc Sulfate 220 mg 04/04/20 09:00 04/08/20 08:26 Zinc Sulfate 220 Mg Cap PO 220 mg DAILY IDANIA Administration - Exam General Appearance: awake alert Eye: anicteric sclera ENT: moist mucosa Neck: supple Heart: RRR Respiratory: CTAB Gastrointestinal: soft, non-tender Hosp A/P - Plan -Assessment (1) Pneumonia due to COVID-19 virus Code(s): U07.1 - COVID-19; J12.89 - OTHER VIRAL PNEUMONIA Status: Acute Plan: Continue Remdesivir/Dexamethasone/Lovenox, O2 support PRN (2) Acute respiratory failure with hypoxia Code(s): J96.01 - ACUTE RESPIRATORY FAILURE WITH HYPOXIA Status: Acute (3) HTN (hypertension) Code(s): I10 - ESSENTIAL (PRIMARY) HYPERTENSION Status: Chronic Qualifiers: Hypertension type: essential hypertension Qualified Code(s): I10 - Essential (primary) hypertension - Plan Pt'e last dose of Remdesivir is tonight Zinc, vitamin C Continue Lovenox 40mg sc BID Likely home tomorrow HTN controlled
[2020-04-08] MEDS ORDERED: diphenhydrAMINE 50 MG/ML VIAL IVP PRN (18:11)
[2020-04-08] MEDS: Cholecalciferol 1,000 UNITS (25 MCG) TAB PO SCH (20:46)
[2020-04-08] MEDS: REMDESIVIR (EUA) 100 MG in Sodium Chloride 0.9% 250 ML 230 ML IV SCH (20:46)
[2020-04-09] MEDS: Zinc Sulfate 220 MG CAP PO SCH (08:14)
[2020-04-09] MEDS: Ascorbic Acid 500 mg Chewable Tablet PO SCH (08:14)
[2020-04-09] MEDS: Aspirin Chewable 81 MG TAB PO SCH (08:15)
[2020-04-09] MEDS: Enoxaparin Sodium 40 MG/0.4 ML SYRINGE SC SCH (08:15)
[2020-04-09] MEDS: Dexamethasone 4 MG TAB PO SCH (08:15)
[2020-04-09 12:49] VITALS: BP 99/67; TEMP 98.2
--- NOTE | 2020-04-10 00:07 | DIS ---
DATE OF ADMISSION: 04/03/2020 DATE OF DISCHARGE: 04/09/2020 PRIMARY CARE PROVIDER: Chaz Hutchins MD DISCHARGE DIAGNOSES: 1. COVID-19 pneumonia. 2. Acute hypoxic respiratory failure. CONDITION OF THE PATIENT ON THE DAY OF DISCHARGE: Stable. I assessed Ms. Bergman on the day of discharge. She denies any chest pain or shortness of breath. Vital signs are stable. S1 and S2 are heard, regular. Lungs are clear to auscultation bilaterally. HOSPITAL COURSE: Ms. Bergman is a pleasant 69-year-old lady, who was admitted to [facility] for acute hypoxic respiratory failure secondary to COVID-19 pneumonia on April 03, 2020. She was started on dexamethasone. She was also started on remdesivir. She continued to improve clinically. She finished her course of remdesivir on April 08, 2020. She is being discharged home in a stable condition. DISCHARGE MEDICATIONS: 1. Dexamethasone 6 mg daily for 4 more days. 2. Zinc 220 mg daily for 4 more days. 3. Vitamin C 1000 mg daily for 4 more days. Otherwise, no change was made to her pre-admission home medications. POST-ACUTE CARE FOLLOWUP: With primary care provider in 3 days. ACTIVITY: As tolerated. DIET: Heart healthy. DISCHARGE DESTINATION: Home. TOTAL AMOUNT OF TIME SPENT COORDINATING THIS DISCHARGE: 25 minutes. Job ID: [id number]
--- NOTE | 2020-04-11 06:09 | PQF ---
CLINICAL DOCUMENTATION CLARIFICATION FORM: Dear : Emmanuel Marrero Date / Time: 04/11/2020 0608 Please exercise your independent, professional judgment in responding to the clarification form. Clinical indicators are provided on the bottom of this form for your review Please check appropriate box(es) to clarify if the following diagnosis has been ruled in our ruled out: Sepsis [ ] Ruled in diagnosis [ ] Continue to treat [ ] Resolved [x ] Ruled out diagnosis [ ] Improving [ ] Cannot rule out diagnosis [ ] Other diagnosis [ ] Unable to determine Physician Signature: Date/Time: For continuity of documentation, please document condition throughout progress notes and discharge summary. Thank You. To be completed by CDI/Coding staff for physician review: Present Clinical Indicators - Signs / Symptoms / Labs Results and Location in Medical Record [X] WBC 11.5, Neutrophils 81.6, Plt count 269 Laboratory 04/03 [X] Chest X-ray: Patchy multifocal infiltrates very suspicious for Covid Pneumonia Imaging Dr Mustafa 04/03 [X] BP 108/59, Pulse 85, Resp 18, Temp 100.0 Vital signs 04/03 [X] She has no leukocystosis but she is tachycardic and meet criteria for sepsis H&P p1 04/03 Dr Forrest [X] Covid Pneumonia H&P p2 04/03 Dr Forrest [X] Hypotension H&P p2 04/03 Dr Forrest [X] Acute respiratory failure PHN Dr Cordova 04/04 [X] Hypotension may be due to hypovolemic from dirrhea PHN Dr Cordova 04/04 Present Risk Factors Results and Location in Medical Record [X] 69 year-old Female H&P p1 04/03 Dr Forrest [X] HTN H&P p1 04/03 Dr Forrest [X] Covid Pneumonia H&P p2 04/03 Dr Forrest Present Treatments Results and Location in Medical Record [X] IV Azithromycin 500 mg AUG 30 [X] IV Rocephin 2 gm AUG 30 [X] IV Remdesiver 200 mg AUG 30 [X] IVF NS 1L AUG 1012 [X] Chest X-ray Imaging Dr Mustafa 04/03 [facility] Signature: Swapna Ozunasamantha Phone #: [phone] Date/Time: 04/11/2020 0608 This is a permanent part of the Medical Record [facility]
== END 2020-04-09 12:34 | disposition home or self-care (01) | DRG 177 ==
LOC: ERS 16:31 → T4-B 20:11
PROVIDERS: ADMIT Internal Medicine; ATTEND Internal Medicine
PROC: 8E0ZXY6 Isolation (ICD-10-PCS; 2020-04-03)
PROC: XW033E5 Introduction of Remdesivir Anti-infective into Peripheral Vein, Percutaneous Approach, New Technology Group 5 (ICD-10-PCS; principal; 2020-04-04)
PROC: 3E0234Z Introduction of Serum, Toxoid and Vaccine into Muscle, Percutaneous Approach (ICD-10-PCS; 2020-04-04)
DX: U07.1 COVID-19 (principal); J96.01 Acute respiratory failure with hypoxia; J12.89 Other viral pneumonia; I10 Essential (primary) hypertension; E86.1 Hypovolemia; Z79.899 Other long term (current) drug therapy; Z23 Encounter for immunization; Z79.82 Long term (current) use of aspirin
CPT/HCPCS: 36415; 71045; 80048; 80053; 80076; 82728; 84484; 85025; 85379; 86140; 87635; 90471; 90732; 93005; 96365; 96375; G0009; J0696; J1100; J1650; J1885; J2405; J7050; J8540; U0003

== ENCOUNTER 2021-01-10 13:27 | Outpatient (CLI) | payer OTHER, MEDICARE | END 2021-01-10 13:28 | disposition home or self-care (01) | LOC: BICMAMMO 13:27 | PROVIDERS: ATTEND Family Medicine | DX: Z12.31 Encounter for screening mammogram for malignant neoplasm of breast (principal); Z80.3 Family history of malignant neoplasm of breast | CPT/HCPCS: 77063; 77067 ==

== ENCOUNTER 2022-01-23 14:56 | Outpatient (CLI) | payer BC, MEDICARE | END 2022-01-23 14:57 | disposition home or self-care (01) | LOC: BICMAMMO 14:56 | PROVIDERS: ATTEND Family Medicine | DX: Z12.31 Encounter for screening mammogram for malignant neoplasm of breast (principal); Z13.820 Encounter for screening for osteoporosis; Z78.0 Asymptomatic menopausal state; Z80.3 Family history of malignant neoplasm of breast; M85.89 Other specified disorders of bone density and structure, multiple sites | CPT/HCPCS: 77063; 77067; 77080 ==